=== PATIENT | female | born 1930 | race Caucasian/White ===

== ENCOUNTER → 2017-08-05 | Outpatient (CLI) | payer OTHER ==
[~2017-08-05] MED LIST: ASPIRIN EC81 M1; CALCIUM OYSTER500 MG; FEMARA2.5 MG; IBUPROFEN 200200 M1 PO; LIDODERM; LOTREL 5-20 MG1 EACH; LOVASTAT20; MULTIVITAMINS; OMEGA-3100 MG PO; ULTRAM 50MG TAB50 MG PO; ZANTAC 150MG T150 M1 PO
== END ==
LOC: CAT 09:12
DX: K35.2 Acute appendicitis with generalized peritonitis (principal); L02.91 Cutaneous abscess, unspecified; K44.9 Diaphragmatic hernia without obstruction or gangrene; K80.80 Other cholelithiasis without obstruction; N83.292 Other ovarian cyst, left side; M47.896 Other spondylosis, lumbar region